=== PATIENT | male | born 1950 | race Caucasian/White ===

== ENCOUNTER 2016-04-29 13:23 | Inpatient (IN) | payer MEDICARE, MEDICAID ==
[~2016-04-29] VITALS: Ht 168.9 cm; Wt 59.9 kg
[~2016-04-29 13:23] MED LIST: ADVAIR 10028 PUFF/IN IN; ALBUTEROL2 PUFFS/17 IN; AMOXIL500 MG PO; ASPIR-LOW81 MG PO; ASPIRIN81 MG PO; BACLOFEN 10MG T10 MG PO; BENZONATATE100 M1 PO; BUPROPION HYDR150 M1 PO; CEFTIN500 MG PO; CHEWABLE ASPIRI81 MG PO; CLARITIN10 MG OR; COMBIVENT INH14.7 GM IN; CRESTOR10 MG PO; CRESTOR20 MG PO; DOXEPIN100 MG PO; DUONEB 3 MG/3 ML3 ML IH; FERROUS SULFAT325 M2 PO; GABAPENTIN 600600 MG PO; IRON TABLETS325 MG PO; Isosorbide Mono60 MG PO; LEVAQUIN 750 M750 MG PO; LEVAQUIN500 MG PO; LISINOPRIL/HCTZ1 TA3 PO; LISINOPRIL5 MG PO; LORTAB 500 MG-11 TAB PO; LOSARTAN POTASS25 MG PO; LOSARTAN POTASS50 MG PO; MECLICOT25 MG PO; MELOXICAM15 MG PO; METOCLOPRAMIDE10 MG PO; MIRALAX17 GM/DOSE PO; MUCINEX600 M1 PO; NEURONTIN 300M300 MG PO; NEURONTIN600 MG PO; NEXIUM40 MG PO; NITROGLYCERIN0.4 MG SL; NORCO 325 MG-101 TAB PO; OMEPRAZOLE40 MG PO; PHENERGAN25 M3 PO; PLAVIX75 MG PO; PREDNISONE 5MG.5 MG PO; PROMETHAZINE25 M1 PO; SINGULAIR10 MG PO; SYMBICORT1 AE1 IH; TESSALON PERLE100 MG PO; VITAMIN D1000 IU PO; XANAX1 MG PO; ZITHROMAX Z PA250 MG PO
[2016-04-29 13:25] VITALS: BP 103/57
[2016-04-29 13:51] LABS: LYMPH # 1.1 K/mm3 (0.7-4.5); LYMPH % 6.9 % (10-50)
[2016-04-29 13:52] LABS: HEMOGLOBIN 14.5 g/dL (14.1-18.0)
--- NOTE | 2016-04-29 13:57 | Emergency Room Report ---
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 N Clinical Suspician of Infection? N Mental Status: 1 - Regular (Normal Baseline) Sepsis Risk:Low Sepsis Risk Have you (or family members/close friends) recently traveled outside the [place]? N If Yes, where/when: Have you had exposure to infectious disease within the past month? N TB? Other? Specify: Comment The patient comes in by ambulance. He says that he has been shaking all over his body all day today and feels very chilled. He also has a sensation of tingling of his skin all over his body. Because of this he is afraid that he has had a heart attack or stroke. He has had a cough off and on for 3 months, productive of green sputum. He has some diarrhea but says he took some Imodium and that is better. States had chest pain this morning and took a nitroglycerin. ALLERGIES Coded Allergies: Sulfa (Sulfonamide Antibiotics) (Mild, 04/07/15) ciprofloxacin (From CIPRO) (Mild, 04/07/15) codeine (Mild, 04/07/15) morphine (Mild, 04/07/15) Home Medications Reported Medications BACLOFEN (Baclofen) 10 MG PO BID #60 HYDROCODONE/ACETAMINOPHEN ([place] 10-325 Tablet) 1 TAB PO QIDP PRN PAIN Clopidogrel Bisulfate (Plavix) 75 MG PO DAILY Aspirin (Aspir-Low) 81 MG PO QAM #2 Loratadine (Claritin 10MG Tab) 10 MG OR DAILY Polyethylene Glycol 3350 (Miralax) 17 GM PO DAILY CHOLECALCIFEROL (VITAMIN D3) (Vitamin D3) 1,000 IUNITS PO DAILY Albuterol/Ipratropiu (Duoneb) 3 ML IH QID Ferrous Sulfate (Feosol) 325 MG PO DAILY DOXEPIN HCL (Doxepin Hydrochloride) 50 MG PO QHS PROMETHAZINE HCL (Phenergan 25MG Tab (Geq)) 25 MG PO QIDP PRN N/V Mirtazapine 30 MG PO DAILY Benzonatate 200 MG PO TIDP PRN cough UMECLIDINIUM BROMIDE (Incruse Ellipta) 62.5 MCG IH DAILY LISINOPRIL/HYDROCHLOROTHIAZIDE (Lisinopril-Hctz 10-12.5 MG Tab) 1 TAB PO DAILY Device (Oxygen, Portable) 1 UNIT IH CONSTANT Device (Oxygen Concentrator (Portable)) 1 UNIT IH CONSTANT Alprazolam (Xanax) 1 MG PO TIDP Albuterol (Albuterol Inhaler 17GM) 2 PUFFS IN QIDP PRN SHORTNESS OF BREATH Metoclopramide Hcl (Metoclopramide) 10 MG PO ACHS NITROGLYCERIN (Nitrostat) 0.4 MG SL PRN Rosuvastatin Calcium (Crestor) 10 MG PO QHS Gabapentin (Gabapentin 600MG) 600 MG PO TID Montelukast Sodium (Singulair) 10 MG PO QHS BUDESONIDE/FORMOTEROL FUMARATE (Symbicort 160-4.5 Mcg Inhaler) 2 PUFFS IH BID Meclizine Hydrochloride (Meclicot) 12.5 MG PO TIDP PRN DIZZINESS Guaifenesin (Mucinex) 600 MG PO BID ISOSORBIDE MONONITRATE (Isosorbide Mononitrate ER) 60 MG PO DAILY Omeprazole (Omeprazole 40MG) 40 MG PO DAILY Prednisone (Prednisone 5MG) 5 MG PO DAILY History Medical History General CAD? Yes Angina: Yes [place]: Yes Hypertension? Yes Hyperlipidemia? Yes CHF? Yes DVT? No PE? No COPD? Yes Asthma? Yes Anemia? No GERD? No Gastric ulcers? No GI Bleed? No Hernia? No Thyroid Problems? No Hypothyroidism? No CVA? No Seizures? No Diabetes? No Insulin Dependent: No Insulin Pump: No Home FSBS? No Renal Insuffiency? No End Stage Renal Disease? No UTI? Yes Stones? No BPH? No GB Disease: Yes Nephritic Syndrome? No Asplenia? No Hepatitis? Yes Sickle Cell Disease? No Arthritis? No Migraines? No Cataracts? No Glaucoma? No MRSA? No HIV? No TB? No Anxiety? No Depression? No Cancer? Yes Site: BONE/BACK Immunization Hx DT/Tetanus 5-10 YRS Flu Refused Pneumonia Received In Past Surgical Hx Previous Surgery?Y STENTS IN HEART X 9 BACK SURGERY ANKLE SURGERY KNEE APPY LEFT HAND RODS IN BACK GALLBLADDER STENT RT LEG x2 Family History Family Hx Diabetes Yes CAD Yes Hypertension Yes Hyperlipidemia Yes Cancer Yes TB No Social History Smoking Hx Smoker: Current Every Day Smoker Tobacco: Yes Type Cigarettes Packs/day < 1 Pack Alcohol Alcohol: Yes Review of Systems All Other Systems Reviewed and Negative Constitutional chills Respiratory cough, denies shortness of breath Cardiovascular chest pain Gastrointestinal diarrhea, denies vomiting Psychiatric/Neurological denies headache, tingling, denies weakness Physical Exam Vital Signs Vital Signs Date Time Temp Pulse Resp B/P Pulse O2 O2 Flow FiO2 Ox Delivery Rate 04/29 1552 97.2 82 16 98/62 97 3 04/29 1512 82 16 98/62 97 3 04/29 1434 92 18 87/47 93 3 04/29 1357 97.2 97 16 102/43 93 3 04/29 1350 77 04/29 1325 97.2 89 16 103/57 77 General Appearance normal appearance, WD/WN Eye Exam - bilateral eye normal exam, bilateral eye PERRL, bilateral eye EOMI Ear, Nose, Throat hearing grossly normal, normal ENT inspection Neck normal inspection, non-tender, supple, full range of motion Respiratory Status Yes: trachea midline, chest symmetrical, non tender chest. No: respiratory distress. Lung Sounds bilateral: normal breath sounds, lungs clear. Cardiovascular normal exam, regular rate/rhythm, no peripheral edema, no gallop, no JVD, no murmur, no rub, normal peripheral pulses Peripheral Pulses Pulses normal Yes Gastrointestinal normal bowel sounds, normal exam, non tender, soft, no organomegaly Back normal inspection, no CVA tenderness, no vertebral tenderness Extremities non-tender, normal range of motion, normal inspection Neurologic alert, accountant budget II-XII nml as tested, normal exam, oriented x 3 Mental status normal mood/affect Skin intact, normal color, warm/dry Medical Decision Making LABS/Meds/Orders Pt receiving controlled substance in ED? No Results/Orders Laboratory Tests 04/29/16 1420: Lactic Acid 1.5 04/29/16 1405: Influenza Type A Ag NOT DETECTED, Influenza Type B Ag NOT DETECTED 04/29/16 1325: Troponin I 0.03 04/29/16 1325: Sodium 128 L, Potassium 3.9, Chloride 89 L, Carbon Dioxide 28, BUN 16, Creatinine 1.7 H, Estimated Creat Clear 35 L, Estimated GFR (MDRD) 40, Glucose 82, Calcium 9.7, Total Bilirubin 0.4, AST 63 H, ALT 72, Alkaline Phosphatase 103, Total Protein 7.9, Albumin 3.5, Globulin 4.4 H, Albumin/Globulin Ratio 0.8 L, Amylase 146 H, Lipase 323, WBC 15.5 H, RBC 4.58 L, Hgb 14.5, Hct 43.3, MCV 94.5, RDW 14.1, Plt Count 436 H, MPV 8.5, Gran % 88.7 H, Gran # 13.8 H, Total Counted 100, Lymphocytes % 6.9 L, Monocytes % 3.5, Eosinophils % 0.4, Basophils % 0.5, Neutrophils 85 H, Band Neutrophils 1, Lymphocytes (Manual) 7 L, Lymphocytes # 1.1, Monocytes (Manual) 7, Monocytes # 0.5, Eosinophils # 0.1, Basophils # 0.1, Differential Comment MODERATE INCREASED PLATELETS, Platelet Estimate CLUMPED, Tear Drop Cells 2+, [place] Cells 1+, PUBS MCHC 33.5, MCH 31.6 H Current Medication Orders Sig/[place] Start time Last Medication Dose Route Stop Time Status Admin Azithromycin 500 MG 1400 04/30 1400 AC Sodium Chloride 250 ML IV Ceftriaxone Sodium 1 GM 1300 04/30 1300 AC Sodium Chloride 50 ML IV Albuterol/Ipratropium 3 ML QIDRT 04/29 2000 AC 04/29 INH 2009 Influenza Virus 0.5 ML PRN PRN 04/29 1530 AC Vaccine Quadrival IM Nicotine 21 MG DAILYP PRN 04/29 1530 AC TD Sodium Chloride 1,000 ML .[id number] 04/29 1530 AC 04/29 IV 1809 Sodium Chloride 10 ML PRN PRN 04/29 1530 AC IV Sodium Chloride 1,000 ML .[id number] 04/29 1515 DC IV 04/29 1615 Azithromycin 0 .STK-MED ONE 04/29 1503 DC IV Sodium Chloride 250 ML .STK-MED ONE 04/29 1502 DC IV Azithromycin 500 MG ONCE ONE 04/29 1430 DC 04/29 Sodium Chloride 250 ML IV 04/29 1529 1505 Ceftriaxone Sodium 1 GM ONCE ONE 04/29 1430 DC 04/29 Sodium Chloride 50 ML IV 04/29 1459 1425 Ceftriaxone Sodium 0 .STK-MED ONE 04/29 1423 DC IV Sodium Chloride 50 ML .STK-MED ONE 04/29 1423 DC IV Sodium Chloride 10 ML PRN PRN 04/29 1345 AC IV 04/30 1334 Orders Procedure Date/time Status CBC WITH AUTO DIFF 04/30 0600 Active BASIC METABOLIC PROFILE 04/30 0600 Active [id number] FAT/LO CHO/MAISHA 04/29 D Active RT Sputum Induction for specim 04/29 154 Active RT Sputum Specimen, Collected 04/29 1542 Active RT Shift Assessment 04/29 1542 Active RT Pulse Oximetry, Provide 04/29 1542 Active RT O2 Installation/Change Set 04/29 154 Active RT O2 Therapy, Monitor/[place] 04/29 1542 Active RT Aerosol Treatment, Provide 04/29 1542 Active RT Aerosol Treatment, Provide 04/29 1542 Active Decision to admit 04/29 1507 Active DIARRHEA PANEL, PCR 04/29 1455 Active ELECTROCARDIOGRAM REQUEST 04/29 1404 Active CULTURE, BLOOD 04/29 1404 Active TROPONIN I 04/29 1404 Complete LACTIC ACID 04/29 1404 Complete INFLUENZA A&B ANTIGENS 04/29 1404 Complete OXYGEN PER NURSE 04/29 1341 Active IV SALINE LOCK 04/29 1334 Active LIPASE 04/29 1334 Complete CBC WITH AUTO DIFF 04/29 1334 Complete CHEM 12 PROFILE 04/29 1334 Complete AMYLASE 04/29 1334 Complete DIFFERENTIAL-WBC 04/29 1325 Complete ADMIT PATIENT 04/29 UNK Active 12 LEAD EKG-FLORES (INITIAL) 04/29 UNK Active PULSE OXIMETRY REQUEST 04/29 UNK Active OXYGEN REQUEST 04/29 UNK Active RT REQUEST DUONEB 04/29 UNK Active VITAL SIGNS 04/29 UNK Active POM NURSE MARIA ELENA HOSE ORDER 04/29 UNK Active IV SALINE LOCK 04/29 UNK Active RECORD I & O 04/29 UNK Active CODE STATUS 04/29 UNK Active PATIENT ACTIVITY ORDER 04/29 UNK Active CM/EKG CM/EKG Comments EKG interpreted by Viktor Sutherland MD: Rhythm: sinus Rate: 93 [place]: normal Ectopy: none Conduction: RIGHT bundle branch block ST Segment Changes: none T Wave Changes: none Q Waves: none No evidence of acute ischemia or injury XRAY/CT/US XRAY/CT/US XRAY chest Comment X-ray interpreted by Viktor Sutherland M.D.: Left-sided pneumonia. Cardiac size normal. Progress - 3:00 PM:I have discussed the case with Dr. Barrios for Dr. Mercedes who agrees to admit the patient to the hospital. We discussed the patient's clinical information, including history, exam, laboratory and radiology results and ED course. Per hospital procedure, I will write temporary bridge inpatient orders on the patient. Specific orders requested by the admitting physician: Antibiotics, IV fluids Departure Departure Disposition Still a Patient Clinical Impression Primary Impression: Community acquired pneumonia Secondary Impressions: Dehydration Condition STABLE Referrals Teddy Mercedes MD (Family) ED Critical Care Critical Care No at 2027
[2016-04-29 14:14] LABS: NEUTROPHILS 85 % (42-76)
--- NOTE | 2016-04-29 14:44 | RADIOLOGY REPORT PS360 ---
CHEST-PORTABLE HISTORY: Cough, chest pain COUGHING UP GREEN STUFF FOR A MONTH COMPARISON: 02/15/2016 FINDINGS: Normal heart size. Coronary artery calcifications and/or stent noted on the left. There are moderate emphysematous changes with scattered areas of fibrosis. Increased density is present in the left mid and upper lungs on consistent with left-sided pneumonia. No effusions. No acute bony anomalies. IMPRESSION: Left-sided pneumonia superimposed upon chronic emphysematous changes with pulmonary fibrosis
[2016-04-29 16:38] VITALS: BP 105/60
[2016-04-29 16:46] VITALS: BP 105/60
--- NOTE | 2016-04-29 16:47 | HISTORY AND PHYSICAL REPORT ---
History and Physical ([facility]CA) Date of admission: 04/29/16 Chief complaint: SOA History: History of Present Illness: Mr. Chan is a 66 yo white male with a hx of severe COPD, Hep C, Cirrhosis, HTN, HLP, CAD, tobacco abuse, alcohol abuse, and chronic pain who presented to the ER today by ambulance. He states that he has been shaking all over today and has felt very chilled. He also has a sensation of tingling of his skin all over his body. He has had a cough off and on for 3 months with productive green sputum. He has had some diarrhea but states he took some Imodium and that is better. He did have some CP this am and took a nitro. He was recently seen by Dr. Xiong on 04/24/16 and was started on amoxicillin and a medrol dose pack for his productive cough. He was was evaluated in the ER and found to have pneumonia. He was admitted and started on abx and neb treatments. Past Medical History: Medical History: CAD? Yes Angina: Yes [place]: Yes Hypertension? Yes Hyperlipidemia? Yes CHF? Yes DVT? No PE? No COPD? Yes Asthma? Yes Anemia? No GERD? No Gastric ulcers? No GI Bleed? No Hernia? No Thyroid Problems? No Hypothyroidism? No CVA? No Seizures? No Diabetes? No Insulin Dependent: No Insulin Pump: No Home FSBS? No Renal Insuffiency? No UTI? Yes Stones? No BPH? No GB Disease: Yes Nephritic Syndrome? No Asplenia? No Hepatitis? Yes Sickle Cell Disease? No Arthritis? No Migraines? No Cataracts? No Glaucoma? No MRSA? No HIV? No TB? No Anxiety? No Depression? No Cancer? Yes Site: BONE/BACK Additional hx: 1. Alcohol Abuse 2. Tobacco abuse 3. Cirrhosis 4. Hep C Surgical history: Previous Surgery?Y 1. STENTS IN HEART X 9 B 2. BACK SURGERY 3. ANKLE SURGERY 4. LEFT TOTAL KNEE 5. APPY 6. LEFT HAND 7. RODS IN BACK 8. GALLBLADDER 9. STENT RT LEG x2 10. CATARACT Medications: Reported Medications BACLOFEN (Baclofen) 10 MG PO BID #60 HYDROCODONE/ACETAMINOPHEN ([place] 10-325 Tablet) 1 TAB PO QIDP PRN PAIN Clopidogrel Bisulfate (Plavix) 75 MG PO DAILY Aspirin (Aspir-Low) 81 MG PO QAM #2 Loratadine (Claritin 10MG Tab) 10 MG OR DAILY Polyethylene Glycol 3350 (Miralax) 17 GM PO DAILY CHOLECALCIFEROL (VITAMIN D3) (Vitamin D3) 1,000 IUNITS PO DAILY Albuterol/Ipratropiu (Duoneb) 3 ML IH QID Ferrous Sulfate (Feosol) 325 MG PO DAILY DOXEPIN HCL (Doxepin Hydrochloride) 50 MG PO QHS PROMETHAZINE HCL (Phenergan 25MG Tab (Geq)) 25 MG PO QIDP PRN N/V Mirtazapine 30 MG PO DAILY Benzonatate 200 MG PO TIDP PRN cough UMECLIDINIUM BROMIDE (Incruse Ellipta) 62.5 MCG IH DAILY LISINOPRIL/HYDROCHLOROTHIAZIDE (Lisinopril-Hctz 10-12.5 MG Tab) 1 TAB PO DAILY Device (Oxygen, Portable) 1 UNIT IH CONSTANT Device (Oxygen Concentrator (Portable)) 1 UNIT IH CONSTANT Alprazolam (Xanax) 1 MG PO TIDP Albuterol (Albuterol Inhaler 17GM) 2 PUFFS IN QIDP PRN SHORTNESS OF BREATH Metoclopramide Hcl (Metoclopramide) 10 MG PO ACHS NITROGLYCERIN (Nitrostat) 0.4 MG SL PRN Rosuvastatin Calcium (Crestor) 10 MG PO QHS Gabapentin (Gabapentin 600MG) 600 MG PO TID Montelukast Sodium (Singulair) 10 MG PO QHS BUDESONIDE/FORMOTEROL FUMARATE (Symbicort 160-4.5 Mcg Inhaler) 2 PUFFS IH BID Meclizine Hydrochloride (Meclicot) 12.5 MG PO TIDP PRN DIZZINESS Guaifenesin (Mucinex) 600 MG PO BID ISOSORBIDE MONONITRATE (Isosorbide Mononitrate ER) 60 MG PO DAILY Omeprazole (Omeprazole 40MG) 40 MG PO DAILY Prednisone (Prednisone 5MG) 5 MG PO DAILY Allergies: Coded Allergies: Sulfa (Sulfonamide Antibiotics) (Mild, 04/07/15) ciprofloxacin (From CIPRO) (Mild, 04/07/15) codeine (Mild, 04/07/15) morphine (Mild, 04/07/15) Family History: Family history: Postive for: CAD, DM, HTN, cancer, hyperlipidemia. Social History: Smoking Hx Tobacco: Yes Smoker: Current Every Day Smoker Type: Cigarettes Packs/day: < 1 Pack Are you exposed to second hand No Alcohol: Alcohol: Yes Hx of Drug Use: Drug Use? No Review of Systems: Constitutional Positive for: chills, lethargy, malaise, weak. ENT Positive for: nasal congestion, sore throat. Cardiovascular Positive for: chest pain. No: edema, palpitations. Respiratory Positive for: dyspnea on exertion, shortness of air, productive cough (sputum), wheezing. GI Positive for: diarrhea. No: abdominal pain, hematemeis, hematochezia, nausea, vomitting. (male) No: frequency, hematuria. Neurological Positive for: dizziness, weakness. No: headache, syncope. Musculoskeletal Positive for: joint pain (all over), myalgias. Physical Exam: Vital signs: 1ST Vital Signs Result Date Time Pulse Ox 77 04/29 132 B/P 103/57 04/29 1324 Temp 97.2 04/29 1324 Pulse 89 04/29 132 Resp 16 04/29 132 O2 Flow Rate 3 04/29 1357 Exam: General appearance: alert, awake, no acute distress Eyes: anicteric, conjunctiva clear, EOM's w/normal ROM, PERRLA ENT: mucous membranes moist, nose normal, pharynx normal Neck: non-tender, no carotid bruit, full range of motion, supple Cardiovascular: regular rate & rhythm Respiratory: diminished breath sounds posteriorly, LLL with wheezing ABD: non-distended, normal bowel sounds, no rebound, soft, no tenderness, no guarding Extremities: no peripheral edema Musculoskeletal: equal muscle strength, no calf tenderness Skin: normal color Neuro: normal mood/affect, oriented, speech clear Lab data: Labs: Laboratory Tests 04/29/16 1420: Lactic Acid 1.5 04/29/16 1405: Influenza Type A Ag NOT DETECTED, Influenza Type B Ag NOT DETECTED 04/29/16 1325: Troponin I 0.03 04/29/16 1325: Sodium 128 L, Potassium 3.9, Chloride 89 L, Carbon Dioxide 28, BUN 16, Creatinine 1.7 H, Estimated Creat Clear 35 L, Estimated GFR (MDRD) 40, Glucose 82, Calcium 9.7, Total Bilirubin 0.4, AST 63 H, ALT 72, Alkaline Phosphatase 103, Total Protein 7.9, Albumin 3.5, Globulin 4.4 H, Albumin/Globulin Ratio 0.8 L, Amylase 146 H, Lipase 323, WBC 15.5 H, RBC 4.58 L, Hgb 14.5, Hct 43.3, MCV 94.5, RDW 14.1, Plt Count 436 H, MPV 8.5, Gran % 88.7 H, Gran # 13.8 H, Total Counted 100, Lymphocytes % 6.9 L, Monocytes % 3.5, Eosinophils % 0.4, Basophils % 0.5, Neutrophils 85 H, Band Neutrophils 1, Lymphocytes (Manual) 7 L, Lymphocytes # 1.1, Monocytes (Manual) 7, Monocytes # 0.5, Eosinophils # 0.1, Basophils # 0.1, Differential Comment MODERATE INCREASED PLATELETS, Platelet Estimate CLUMPED, Tear Drop Cells 2+, Jaqueline Cells 1+, PUBS MCHC 33.5, MCH 31.6 H Microbiology 04/29 1420 BLOOD: Anaerobic Blood Culture - RECD 04/29 1420 BLOOD: Aerobic Blood Culture - RECD 04/29 1420 BLOOD: Anaerobic Blood Culture - RECD 04/29 1420 BLOOD: Aerobic Blood Culture - RECD Radiology results: Results: CXR- Left-sided pneumonia superimposed upon chronic emphysematous changes with pulmonary fibrosis Diagnosis(es): 1. Pneumonia Status: Acute 2. Renal insufficiency Status: Acute 3. Hyponatremia Status: Acute 4. Chronic low back pain Status: Chronic 5. ASCVD (arteriosclerotic cardiovascular disease) Status: Chronic 6. Hypertension Status: Chronic 7. Tobacco user Status: Chronic 8. oxygen dependent COPD Status: Chronic 9. Depression with anxiety Status: Chronic Plan: Will start back on most of his home medications. Will continue abx, IVF's, and nebs. (Celina Santiago) Diagnosis(es): 1. Pneumonia Status: Acute 2. oxygen dependent COPD Status: Chronic 3. Renal insufficiency Status: Acute 4. Hyponatremia Status: Acute 5. Chronic low back pain Status: Chronic 6. ASCVD (arteriosclerotic cardiovascular disease) Status: Chronic 7. Hypertension Status: Chronic 8. Tobacco user Status: Chronic 9. Depression with anxiety Status: Chronic Plan: Saw patient yesterday afternoon, on day of admission, and agree with above note, but was unable to sign note at that time. (Sophie VIDES,Eric) at 3035
[2016-04-29] MEDS ORDERED: FEOSOL325 MG PO (16:55)
[2016-04-29] MEDS ORDERED: DOXEPIN HYDROCH PO (16:57)
[2016-04-29] MEDS ORDERED: INCRUSE EL62.5 MCG/A IH (17:01)
[2016-04-29] MEDS ORDERED: BENZONATATE200 MG PO (17:01)
[2016-04-29] MEDS ORDERED: MIRTAZAPINE30 M1 PO (17:01)
[2016-04-29] MEDS ORDERED: PHENERGAN25 M3 PO (17:01)
[2016-04-29] MEDS ORDERED: HYDROCHLOROTHIA1 TAB PO (17:02)
[2016-04-29] MEDS ORDERED: OXYGEN2 IH (17:02)
[2016-04-29] MEDS ORDERED: OXYGEN3 IH (17:02)
[2016-04-29 20:11] VITALS: BP 114/53
[2016-04-29 20:33] VITALS: BP 100/44; BP 114/53
[2016-04-29 23:48] VITALS: BP 100/44
[2016-04-30] VITALS (7 sets, daily range): BP systolic 102–122; BP diastolic 52–62
[2016-04-30 06:41] LABS: LYMPH # 0.9 K/mm3 (0.7-4.5); LYMPH % 5.8 % (10-50)
[2016-04-30 06:54] LABS: HEMOGLOBIN 10.8 g/dL (14.1-18.0)
--- NOTE | 2016-04-30 08:02 | ACUTE CARE PROGRESS NOTE (QUA) ---
Progress Notes Subjective Date 04/30/16 Time 0759 Note Pt states he is feeling better today. He is still wheezing and SOA. He did rest well. He denies any pain today. Objective Findings Last VS-Temp:97.78 B/P:104/57 Pulse:79 Resp:20 SaO2:93 OXYGEN Last weight lbs:126 oz:9 K.408 Method:Bed Scales Laboratory Tests 04/30/16 0610: Sodium 132 L, Potassium 4.5, Chloride 97 L, Carbon Dioxide 28, BUN 15, Creatinine 0.7 L, Estimated Creat Clear 83, Estimated GFR (MDRD) 112, Glucose 116 H, Calcium 8.7, WBC 15.1 H, RBC 3.39 L, Hgb 10.8 L, Hct 31.9 L, MCV 94.2, RDW 14.2, Plt Count 320, MPV 8.6, Gran % 89.4 H, Gran # 13.5 H, Lymphocytes % 5.8 L, Monocytes % 4.7, Eosinophils % 0.1, Basophils % 0.1, Lymphocytes # 0.9, Monocytes # 0.7, Eosinophils # 0.0, Basophils # 0.0, PUBS MCHC 33.7, MCH 31.7 H 04/29/16 1420: Lactic Acid 1.5 04/29/16 1405: Influenza Type A Ag NOT DETECTED, Influenza Type B Ag NOT DETECTED 04/29/16 1325: Troponin I 0.03 04/29/16 1325: Sodium 128 L, Potassium 3.9, Chloride 89 L, Carbon Dioxide 28, BUN 16, Creatinine 1.7 H, Estimated Creat Clear 35 L, Estimated GFR (MDRD) 40, Glucose 82, Calcium 9.7, Total Bilirubin 0.4, AST 63 H, ALT 72, Alkaline Phosphatase 103, Total Protein 7.9, Albumin 3.5, Globulin 4.4 H, Albumin/Globulin Ratio 0.8 L, Amylase 146 H, Lipase 323, WBC 15.5 H, RBC 4.58 L, Hgb 14.5, Hct 43.3, MCV 94.5, RDW 14.1, Plt Count 436 H, MPV 8.5, Gran % 88.7 H, Gran # 13.8 H, Total Counted 100, Lymphocytes % 6.9 L, Monocytes % 3.5, Eosinophils % 0.4, Basophils % 0.5, Neutrophils 85 H, Band Neutrophils 1, Lymphocytes (Manual) 7 L, Lymphocytes # 1.1, Monocytes (Manual) 7, Monocytes # 0.5, Eosinophils # 0.1, Basophils # 0.1, Differential Comment MODERATE INCREASED PLATELETS, Platelet Estimate CLUMPED, Tear Drop Cells 2+, Jaqueline Cells 1+, PUBS MCHC 33.5, MCH 31.6 H Microbiology 04/29 2009 SPUTUM: Sputum Culture - RES 04/29 2009 SPUTUM: Gram Stain - RES 04/29 142 BLOOD: Anaerobic Blood Culture - RECD 04/29 142 BLOOD: Aerobic Blood Culture - RECD 04/29 1420 BLOOD: Anaerobic Blood Culture - RECD 04/29 142 BLOOD: Aerobic Blood Culture - RECD Exam General appearance: alert, awake, no acute distress Cardiovascular: regular rate & rhythm Respiratory: wheezing and rhonchi bilaterally ABD: non-distended, normal bowel sounds, no rebound, soft, no tenderness, no guarding Extremities: no peripheral edema Assessment/Plan Problem List 1. Pneumonia Status: Acute 2. Renal insufficiency Status: Acute 3. Hyponatremia Status: Acute 4. Chronic low back pain Status: Chronic 5. ASCVD (arteriosclerotic cardiovascular disease) Status: Chronic 6. Hypertension Status: Chronic 7. Tobacco user Status: Chronic 8. oxygen dependent COPD Status: Chronic 9. Depression with anxiety Status: Chronic Plan: Pt improving. Will continue current treatment. This inpt stay is expected to cross 2 MNs from start of care Yes (Celina Santiago) Subjective Date 04/30/16 Time 0822 Assessment/Plan Problem List 1. Pneumonia Status: Acute 2. oxygen dependent COPD Status: Chronic 3. Renal insufficiency Status: Acute 4. Hyponatremia Status: Acute 5. Chronic low back pain Status: Chronic 6. ASCVD (arteriosclerotic cardiovascular disease) Status: Chronic 7. Hypertension Status: Chronic 8. Tobacco user Status: Chronic 9. Depression with anxiety Status: Chronic Plan: Pt seen and examined. Concur with above assessment and plan. (Teddy Mercedes MD) at 0801 at 0823
--- NOTE | 2016-04-30 08:23 | PHARMACY CLINIC NOTE ---
Patient Demographics Patient Demographics Admission date: 04/29/16 Date: 04/30/16 Time: 0823 Allergies Coded Allergies: Sulfa (Sulfonamide Antibiotics) (Mild, 04/07/15) ciprofloxacin (From CIPRO) (Mild, 04/07/15) codeine (Mild, 04/07/15) morphine (Mild, 04/07/15) HEIGHT- FT: 5 IN: 6.50 K.408 VTE General Information Labs: Laboratory Tests 04/30 04/29 0610 1325 Hematology Hgb (14.1 - 18.0 g/dL) 10.8 L 14.5 Hct (42.0 - 52.0 %) 31.9 L 43.3 Plt Count (142 - 424 K/mm3) 320 436 H Disclaimer The following section includes nursing documentation that has been pulled in for pharmacy review. Patient's VTE score: 3 Patient's VTE Risk: LOW RISK Clinical trial participant? No VTE prophylaxis [id number] VTE prophylaxis ordered? Yes Type of prophylaxis/treatment: MARIA ELENA at 0823
[2016-04-30 13:34] LABS: AEROMONAS NOT DETECTED (NOT DETECTE); ASTROVIRUS NOT DETECTED (NOT DETECTE); CYCLOSPORA CAYETANENSIS NOT DETECTED (NOT DETECTE); E COLI O157 NOT DETECTED (NOT DETECTE); ENTEROAGGREGATIVE E COLI NOT DETECTED (NOT DETECTE); ENTEROPATHOGENIC E COLI NOT DETECTED (NOT DETECTE); ENTEROTOXIGENIC E COLI NOT DETECTED (NOT DETECTE); NOROVIRUS NOT DETECTED (NOT DETECTE); SAPOVIRUS NOT DETECTED (NOT DETECTE); SHIGA-LIKE TOXIN PROD. E COLI NOT DETECTED (NOT DETECTE); SHIGELLA/ENTEROINVASIVE E COLI NOT DETECTED (NOT DETECTE); VIBRIO CHOLERAE NOT DETECTED (NOT DETECTE)
[2016-05-01] VITALS (7 sets, daily range): BP systolic 118–154; BP diastolic 51–80
[2016-05-01 06:28] LABS: HEMOGLOBIN 10.4 g/dL (14.1-18.0); LYMPH % 11.2 % (10-50)
--- NOTE | 2016-05-01 08:25 | ACUTE CARE PROGRESS NOTE (QUA) ---
Progress Notes Subjective Date 05/01/16 Time 0822 Note Patient is feeling better today. He states he has less shortness of air. Still wheezing. He is anxious to go home. He denies any pain. Objective Findings Last VS-Temp:98.6 B/P:149/61 Pulse:97 Resp:18 SaO2:90 OXYGEN Last weight lbs:126 oz:9 K.408 Method:Bed Scales Laboratory Tests 05/01/16 0605: Sodium 134 L, Potassium 3.9, Chloride 98, Carbon Dioxide 30, BUN 9, Creatinine 0.6 L, Estimated Creat Clear 97, Estimated GFR (MDRD) 134, Glucose 92, Calcium 9.0, WBC 8.6, RBC 3.34 L, Hgb 10.4 L, Hct 31.9 L, MCV 95.5, RDW 13.9, Plt Count 284, MPV 8.4, Gran % 82.9 H, Gran # 7.1, Lymphocytes % 11.2, Monocytes % 4.3, Eosinophils % 1.4, Basophils % 0.1, Lymphocytes # 1.0, Monocytes # 0.4, Eosinophils # 0.1, Basophils # 0.0, PUBS MCHC 32.6, MCH 31.1 04/30/16 1325: Stl Cyclospora species NOT DETECTED, Stool Rotavirus (PCR) NOT DETECTED, Stool Campylobacter PCR NOT DETECTED, Stool Giardia Lamblia PCR NOT DETECTED, Stl Norovirus GI/GII PCR NOT DETECTED, Adenovirus (PCR) NOT DETECTED, C. difficile Tox (PCR) NOT DETECTED, E. coli (PCR) NOT DETECTED, Yersinia (PCR) NOT DETECTED Exam General appearance: alert, awake, no acute distress Cardiovascular: regular rate & rhythm Respiratory: inspiratory and expiratory wheezing bilaterally, no rales ABD: non-distended, normal bowel sounds, no rebound, soft, no tenderness, no guarding Extremities: no peripheral edema Assessment/Plan Problem List 1. Pneumonia Status: Acute 2. oxygen dependent COPD Status: Chronic 3. Renal insufficiency Status: Acute 4. Hyponatremia Status: Acute 5. Chronic low back pain Status: Chronic 6. ASCVD (arteriosclerotic cardiovascular disease) Status: Chronic 7. Hypertension Status: Chronic 8. Tobacco user Status: Chronic 9. Depression with anxiety Status: Chronic Plan: Still awaiting sputum culture. White blood cell count has improved. Home soon. This inpt stay is expected to cross 2 MNs from start of care Yes (Celina Santiago) Subjective Date 05/01/16 Time 0829 Assessment/Plan Problem List 1. Pneumonia Status: Acute 2. oxygen dependent COPD Status: Chronic 3. Renal insufficiency Status: Acute 4. Hyponatremia Status: Acute 5. Chronic low back pain Status: Chronic 6. ASCVD (arteriosclerotic cardiovascular disease) Status: Chronic 7. Hypertension Status: Chronic 8. Tobacco user Status: Chronic 9. Depression with anxiety Status: Chronic Plan: Pt seen and examined. By my exam, he still has bilateral coarse rhonchi but much less wheezing. No resp distress. Will continue current antibiotics pending cultures and repeat CXR. (Teddy Mercedes MD) at 0824 at 0832
--- NOTE | 2016-05-01 09:49 | RADIOLOGY REPORT PS360 ---
CHEST(2 VIEWS-NOT PORTABLE) ORDERING PHYSICIAN : Teddy Mercedes MD PATIENT AGE: 66 years GENDER: Male INDICATION: f/u pneumonia TECHNIQUE: PA and lateral chest COMPARISON: 04/29/2016 CXR also February 15, 2016 CXR FINDINGS Diffuse interstitial infiltrate left lung most evident towards left base. The focal area of infiltrate left midlung has dissipated but now more diffuse infiltrate left lung Findings at the left lung appear to progressed since 04/29/2016. Lateral film demonstrates left lower lobe atelectasis and infiltrate, with possible lingular infiltrate There is infiltrate and atelectasis also at the medial right base most likely involving the right lower lobe but also questionably at right middle lobe.. There is hyperexpansion right lung. Heart is normal in size. Coronary artery stent noted. Adry and mediastinal structures stable. Underlying COPD. IMPRESSION: 1. Diffuse interstitial infiltrate left lung. The more focal infiltrate at the left mid lung and perihilar region has dissipated, however there is now a a more diffuse interstitial infiltrate pattern throughout left lung... On today's study Slightly more pronounced focal infiltrate left infrahilar region. 2. Also atelectasis & airspace disease at the medial right base a likely involving the RLL and questionably RML lobe.
[2016-05-02] VITALS (20 sets, daily range): BP systolic 123–180; BP diastolic 53–84
[2016-05-02 03:53] LABS: ARTERIAL ABE 3.8 MMOL/L (-2.4-+2.3)
--- NOTE | 2016-05-02 08:25 | ACUTE CARE PROGRESS NOTE (QUA) ---
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 Patient became sedated/lethargic over night. These episodes would all improve with Narcan treatment. Patient also had a fever several times. He was transferred to step down care for closer monitoring. Nursing staff reports patient had a female visitor last night prior to his change in status. The possibility was raised that he may taken medication/narcotics that were not prescribed to him. Will discuss with Dr. Mercedes. Assessment/Plan Problem List 1. Pneumonia Status: Acute 2. oxygen dependent COPD Status: Chronic 3. Renal insufficiency Status: Acute 4. Hyponatremia Status: Acute 5. Chronic low back pain Status: Chronic 6. ASCVD (arteriosclerotic cardiovascular disease) Status: Chronic 7. Hypertension Status: Chronic 8. Tobacco user Status: Chronic 9. Depression with anxiety Status: Chronic This inpt stay is expected to cross 2 MNs from start of care Yes at 0824
--- NOTE | 2016-05-02 08:25 | ACUTE CARE PROGRESS NOTE (QUA) ---
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 Patient became sedated/lethargic over night. These episodes would all improve with Narcan treatment. Patient also had a fever several times. He was transferred to step down care for closer monitoring. Nursing staff reports patient had a female visitor last night prior to his change in status. The possibility was raised that he may taken medication/narcotics that were not prescribed to him. Will discuss with Dr. Mercedes. Assessment/Plan Problem List 1. Pneumonia Status: Acute 2. oxygen dependent COPD Status: Chronic 3. Renal insufficiency Status: Acute 4. Hyponatremia Status: Acute 5. Chronic low back pain Status: Chronic 6. ASCVD (arteriosclerotic cardiovascular disease) Status: Chronic 7. Hypertension Status: Chronic 8. Tobacco user Status: Chronic 9. Depression with anxiety Status: Chronic This inpt stay is expected to cross 2 MNs from start of care Yes at 0824
[2016-05-02 09:17] LABS: LYMPH % 11.1 % (10-50)
--- NOTE | 2016-05-02 09:40 | ACUTE CARE PROGRESS NOTE (QUA) ---
Progress Notes Subjective Date 05/02/16 Time 0939 Note Events of last evening reviewed with Dr. Barrios and his nurse. He remains sedated this morning but is arousable. No respiratory distress. Objective Findings Laboratory Tests 05/02/16 0753: POC Glucose 96 05/02/16 0328: ABG pH 7.35, ABG pCO2 (Temp Corrct 55.0 H, ABG pO2 (Temp Correct 84.0, ABG HCO3 29.5 H, ABG Total CO2 31.0 H, ABG O2 Sat (Calculated) 95, ABG Base Excess 3.8 H Last VS-Temp:98.9 B/P:136/72 Pulse:99 Resp:20 SaO2:97 OXYGEN Last weight lbs:129 oz:0 K.513 Method:Bed Scales Exam General appearance: Sedated but arouses and attempts to answer questions but quickly drifts back to sleep. No resp distress. Cardiovascular: regular rate & rhythm Respiratory: bilateral coarse rhinchi and wheezes. Diminished BS on left ABD: non-distended, soft, no tenderness, no guarding Extremities: no peripheral edema Skin: dry, normal color, warm Neuro: somnolent Reviewed: medications, vital signs, lab results, nursing notes Assessment/Plan Problem List 1. Altered mental status 2. Pneumonia Status: Acute 3. oxygen dependent COPD Status: Chronic 4. Renal insufficiency Status: Acute 5. Hyponatremia Status: Acute 6. Chronic low back pain Status: Chronic 7. ASCVD (arteriosclerotic cardiovascular disease) Status: Chronic 8. Hypertension Status: Chronic 9. Tobacco user Status: Chronic 10. Depression with anxiety Status: Chronic Plan: The etiology of his AMS is not clear but with the finding of empty [place] bottle in his personal lock box and his response to Narcan raises the question of drug overdose. Acetaminphen level is pending and will check UDS. He is presently in no distress. His O2 sats and ABG are satisfactory. Repeat CXR is pending. Awaiting final sputum C&S (appears to be growing Strep pneumo) Will check UA due to his fever spike last night and will check blood culture. This inpt stay is expected to cross 2 MNs from start of care Yes at 0808
[2016-05-02 09:43] LABS: HEMOGLOBIN 11.7 g/dL (14.1-18.0)
--- NOTE | 2016-05-02 11:21 | RADIOLOGY REPORT PS360 ---
CHEST-PORTABLE COMPARISON: PA and lateral chest 05/01/2016 HISTORY: Follow-up pneumonia TECHNIQUE: AP upright chest FINDINGS: Diffuse interstitial pneumonic infiltrates are again seen in the left perihilar region and left lower lobe. There now is minimal involvement in the right lower lobe and possibly anterior segment right upper lobe. The infiltrates appear somewhat more ill-defined than yesterday's film and this may reflect better hydration of the patient. Cardiac size is again normal. IMPRESSION: Slight interval progression of the interstitial pneumonic infiltrates to the right lung overall infiltrates may appear slightly more pronounced due to better hydration of the patient. Suggest continued close follow-up.
[2016-05-02 12:16] LABS: URINE BILIRUBIN - DIPSTICK NEGATIVE (NEG); URINE BLOOD TRACE-LYSED (NEG)
[2016-05-02 12:30] LABS: AMPHETAMINES/METAMPHETAMINES NEGATIVE ng/mL (<1000)
[2016-05-03] VITALS (16 sets, daily range): BP systolic 96–158; BP diastolic 52–77
[2016-05-03 06:44] LABS: HEMOGLOBIN 12.3 g/dL (14.1-18.0); LYMPH # 1.3 K/mm3 (0.7-4.5); LYMPH % 13.3 % (10-50)
--- NOTE | 2016-05-03 08:13 | ACUTE CARE PROGRESS NOTE (QUA) ---
Progress Notes Subjective Date 05/03/16 Time 0809 Note Through the day yesterday and through the night he has gradually become more alert. He is sitting up eating breakfast this AM and asking to go home. He is oriented x3 this morning. He is eager to go home but not clinically stable at this time. When asked about the events of Wednesday evening, he states "I think somebody slipped me a pill on Wednesday". I asked where this happened and he states it was "down on [address]". He does no remember he was in the hospital on Wednesday. He insists that he has not taken anything else while in the hospital. Objective Exam General appearance: much more alert and oriented. No resp distress. Cardiovascular: regular rate & rhythm Respiratory: bilateral coarse rhonchi with few wheezes. Decreased BS in left base ABD: non-distended, normal bowel sounds, soft, no tenderness Assessment/Plan Problem List 1. Streptococcal pneumonia 2. Altered mental status Assessment/Plan improved 3. oxygen dependent COPD Status: Chronic 4. Renal insufficiency Status: Acute 5. Hyponatremia Status: Acute 6. Chronic low back pain Status: Chronic 7. ASCVD (arteriosclerotic cardiovascular disease) Status: Chronic 8. Hypertension Status: Chronic 9. Tobacco user Status: Chronic 10. Depression with anxiety Status: Chronic Plan: Continue IV Rocephin. Remove Polo. Will get PT eval tomorrow. This inpt stay is expected to cross 2 MNs from start of care Yes at 0842
[2016-05-04] VITALS (7 sets, daily range): BP systolic 123–146; BP diastolic 60–78
--- NOTE | 2016-05-04 08:11 | ACUTE CARE PROGRESS NOTE (QUA) ---
Progress Notes Subjective Date 05/04/16 Time 0801 Note No complaints this AM. States he slept "like a baby". Still with productive cough. Objective Findings Last VS-Temp:97.7 B/P:138/74 Pulse:79 Resp:12 SaO2:94 OXYGEN Last weight lbs:126 oz:4 K.266 Method:Bed Scales Exam General appearance: alert, no acute distress, sitting on side of bed eating breakfast Cardiovascular: regular rate & rhythm Respiratory: bilateral coarse rhonchi. Minimal wheezes. Extremities: no peripheral edema Neuro: Oriented x 3 Assessment/Plan Problem List 1. Streptococcal pneumonia 2. Altered mental status 3. oxygen dependent COPD Status: Chronic 4. Renal insufficiency Status: Acute 5. Hyponatremia Status: Acute 6. Chronic low back pain Status: Chronic 7. ASCVD (arteriosclerotic cardiovascular disease) Status: Chronic 8. Hypertension Status: Chronic 9. Tobacco user Status: Chronic 10. Depression with anxiety Status: Chronic Patient condition Improving Plan: SPutum culture is growing Strep pneumo sensitive to ROcephin. WIll continue Rocephin and stop Zithromax. WIll get PT eval to assess strength and balance. Repeat CXR today. This inpt stay is expected to cross 2 MNs from start of care Yes at 0810
--- NOTE | 2016-05-04 09:22 | RADIOLOGY REPORT PS360 ---
CHEST(2 VIEWS-NOT PORTABLE) ORDERING PHYSICIAN : Teddy Mercedes MD PATIENT AGE: 66 years GENDER: Male INDICATION: f/u pneumoniaShort of breath chest pain follow-up pneumonia TECHNIQUE: . PA and Lateral chest COMPARISON: 05/01/2016 2 view chest::;... 05/02/2016 portable chest FINDINGS Left lung has shown slight overall improvement since 05/01/2016. The diffuse interstitial infiltrate superimposed upon the diffuse chronic changes has regressed throughout improvement most notable at the left lower lobe retrocardiac region. Improved expansion as well. Left CP angle appear sharp with less likely fluid here. Again underlying COPD with underlying bleb formation most evident towards the left apex left upper lung. Stable area of focal scarring at the periphery of the left upper lobe is been present since 2014 Right chest: there does seem to be a very subtle interstitial infiltrate at the right lower lobe associated with some slight volume loss and slight inferior positioning of major fissure as well. Also a patchy area of density at the right upper lobe is mainly due to scarring but is slightly more evident today and I only question minimal associated infiltrate this is likely located posteriorly at RUL. The heart is normal in size. Coronary stent evident. Adry and mediastinal structures unchanged. Chest wall T-spine intact. IMPRESSION:... 1. Left chest: Improvement The diffuse interstitial infiltrate left chest has shown overall improvement since previous recent studies. 2. Right chest.: Suspect very Subtle diffuse interstitial infiltrate RLL with slight volume loss. Also note scarring RUL is slightly more evident.- Most likely projectional but difficult to exclude minimal associated infiltrate developing here as well. 3. Underlying advanced COPD,/ emphysematous changes
[2016-05-05 00:41] VITALS: BP 118/64
[2016-05-05 04:14] VITALS: BP 126/64
--- NOTE | 2016-05-05 07:45 | ACUTE CARE PROGRESS NOTE (QUA) ---
Progress Notes Subjective Date 05/05/16 Time 0739 Note Patient states he feels great and wants to go home. Denies SOB and ANY pain; productive cough is less; eating better; no stools but is passing flatus; + nausea requiring phenergan last PM Objective Findings Vital Signs Date Time Temp Pulse Resp B/P Pulse O2 O2 Flow FiO2 Ox Delivery Rate 05/05 0644 3 05/05 0632 18 05/05 0554 3 05/05 0537 3 05/05 0537 94 OXYGEN 3 05/05 0510 3 05/05 0503 3 05/05 0414 98.6 76 18 126/64 96 OXYGEN 3 05/05 0400 3 05/05 0300 3 05/05 0200 3 05/05 0157 18 05/05 0100 3 05/05 0041 97.6 72 18 118/64 93 05/05 0005 3 05/04 2300 3 05/04 2200 3 05/04 1924 3 05/04 1904 12 05/04 1800 3 05/04 1710 3 05/04 1600 98.1 73 12 130/68 96 OXYGEN 3 05/04 1538 3 05/04 1537 3 05/04 1400 3 05/04 1300 3 05/04 1200 3 05/04 1200 98.6 71 14 124/63 97 OXYGEN 3 05/04 1053 12 05/04 1044 3 05/04 1000 3 05/04 0910 3 05/04 0820 97.7 79 12 138/74 94 3 05/04 0800 3 05/04 0800 98.1 86 16 146/78 97 OXYGEN 3 05/04 0754 3 Current Medications Acetaminophen/Hydrocodone Bitart 0 .STK-MED ONE PO (DCr) Acetaminophen/Hydrocodone Bitart 0 .STK-MED ONE PO (DCr) Alprazolam 0 .STK-MED ONE .ROUTE (DC) Doxepin HCl 50 MG QHS PO Montelukast Sodium 10 MG QHS PO Pantoprazole Sodium 40 MG QHS PO Pravastatin Sodium 20 MG QHS PO Alprazolam 0 .STK-MED ONE .ROUTE (DC) Acetaminophen/Hydrocodone Bitart 0 .STK-MED ONE PO (DCr) Polyethylene Glycol 17 GM DAILYP PRN PO Ceftriaxone Sodium 1 GM 1300 IV Sodium Chloride 50 ML Metoclopramide HCl 10 MG ACHS PO Acetaminophen/Hydrocodone Bitart 0 .STK-MED ONE PO (DCr) Albuterol/Ipratropium 3 ML QIDRT INH Aspirin 81 MG QAM PO Baclofen 10 MG BID PO Clopidogrel Bisulfate 75 MG DAILY PO Ferrous Sulfate 325 MG DAILY PO Gabapentin 600 MG TID PO Guaifenesin 600 MG BID PO Isosorbide Mononitrate 60 MG DAILY PO Loratadine 10 MG DAILY PO Prednisone 5 MG DAILY PO Acetaminophen 650 MG Q4HP PRN PO Acetaminophen 650 MG Q6HP PRN MS Acetaminophen/Hydrocodone Bitart 1 TAB QIDP PRN PO Alprazolam 1 MG TIDP PRN PO Influenza Virus Vaccine Quadrival 0.5 ML PRN PRN IM Loperamide HCl 2 MG Q6HP PRN PO Naloxone HCl 2 MG [id number] PRN IV Nicotine 21 MG DAILYP PRN TD Sodium Chloride 10 ML PRN PRN IV Acetaminophen 650 MG Q6HP PRN MS (DC) Naloxone HCl 2 MG [id number] PRN IV (DC) Acetaminophen 650 MG Q4HP PRN PO (DC) Loperamide HCl 2 MG Q6HP PRN PO (DC) Azithromycin 500 MG 1400 IV (DC) Sodium Chloride 250 ML Ceftriaxone Sodium 1 GM 1300 IV (DC) Sodium Chloride 50 ML Aspirin 81 MG QAM PO (DC) Ferrous Sulfate 325 MG DAILY PO (DC) Isosorbide Mononitrate 60 MG DAILY PO (DC) Loratadine 10 MG DAILY PO (DC) Prednisone 5 MG DAILY PO (DC) Baclofen 10 MG BID PO (DC) Doxepin HCl 50 MG QHS PO (DC) Gabapentin 600 MG TID PO (DC) Guaifenesin 600 MG BID PO (DC) Metoclopramide HCl 10 MG ACHS PO (DC) Montelukast Sodium 10 MG QHS PO (DC) Pantoprazole Sodium 40 MG QHS PO (DC) Pravastatin Sodium 20 MG QHS PO (DC) Albuterol/Ipratropium 3 ML QIDRT INH (DC) Acetaminophen/Hydrocodone Bitart 1 TAB QIDP PRN PO (DC) Alprazolam 1 MG TIDP PRN PO (DC) Clopidogrel Bisulfate 75 MG DAILY PO (DC) Influenza Virus Vaccine Quadrival 0.5 ML PRN PRN IM (DC) Nicotine 21 MG DAILYP PRN TD (DC) Sodium Chloride 10 ML PRN PRN IV (DC) 05/04 1500 05/04 2300 05/05 0700 Intake Total 779 10 Output Total Balance 779 10 Intake, IV 779 10 Output, Stool Patient 126 lb 132 lb Weight Last VS-Temp:98.6 B/P:126/64 Pulse:76 Resp:18 SaO2:94 OXYGEN Last weight lbs:132 oz:2 K.931 Method:Bed Scales CXR 05/04/16 IMPRESSION:... 1. Left chest: Improvement The diffuse interstitial infiltrate left chest has shown overall improvement since previous recent studies. 2. Right chest.: Suspect very Subtle diffuse interstitial infiltrate RLL with slight volume loss. Also note scarring RUL is slightly more evident.- Most likely projectional but difficult to exclude minimal associated infiltrate developing here as well. 3. Underlying advanced COPD,/ emphysematous changes Exam General appearance: alert, active, awake, no acute distress, sitting on bedside eating breakfast Cardiovascular: regular rate & rhythm Respiratory: bilateral rhonchi with soft expiratory wheeze throughout; better air exchange Assessment/Plan Problem List 1. Streptococcal pneumonia 2. Altered mental status 3. oxygen dependent COPD Status: Chronic 4. Renal insufficiency Status: Acute 5. Hyponatremia Status: Acute 6. Chronic low back pain Status: Chronic 7. ASCVD (arteriosclerotic cardiovascular disease) Status: Chronic 8. Hypertension Status: Chronic 9. Tobacco user Status: Chronic 10. Depression with anxiety Status: Chronic Patient condition Improved Plan: continue current care, possibly home today This inpt stay is expected to cross 2 MNs from start of care Yes (Madelyn Oquendo APRN) Assessment/Plan Problem List 1. Streptococcal pneumonia 2. Altered mental status 3. oxygen dependent COPD Status: Chronic 4. Renal insufficiency Status: Acute 5. Hyponatremia Status: Acute 6. Chronic low back pain Status: Chronic 7. ASCVD (arteriosclerotic cardiovascular disease) Status: Chronic 8. Hypertension Status: Chronic 9. Tobacco user Status: Chronic 10. Depression with anxiety Status: Chronic Plan: Pt seen and examined. He looks and feels much better. Concur with above assessment and plan for discharge. Will f/u in office in 3 days. (Teddy Mercedes MD) at 0745 at 0839
[2016-05-05] MEDS ORDERED: CEFUROXIME AXE500 MG PO (08:43)
[2016-05-05 08:45] VITALS: BP 126/65
[2016-05-05 09:31] VITALS: BP 126/65
--- NOTE | 2016-05-07 15:07 | DISCHARGE SUMMARY STANDARD ---
Discharge Summary ([facility]) Date of admission: 04/29/16 Date of discharge: 05/05/16 Problem List: 1. Streptococcal pneumonia 2. Altered mental status 3. oxygen dependent COPD 4. Renal insufficiency 5. Hyponatremia 6. Chronic low back pain 7. ASCVD (arteriosclerotic cardiovascular disease) 8. Hypertension 9. Tobacco user 10. Depression with anxiety History of present illness: Mr. Chan is a 66 yo white male with a hx of severe COPD, Hep C, Cirrhosis, HTN, HLP, CAD, tobacco abuse, alcohol abuse, and chronic pain who presented to the ER by ambulance. He stated that he had been shaking all over and had felt very chilled. He also had a sensation of tingling of his skin all over his body. He had had a cough off and on for 3 months with productive green sputum. He had had some diarrhea but stated he took some Imodium and that was better. He did have some CP the am of admission and took a nitro. He was recently seen by Dr. Xiong on 04/24/16 and was started on amoxicillin and a medrol dose pack for his productive cough. He was evaluated in the ER and found to have pneumonia. He was admitted and started on abx and neb treatments. Exam on admission: General appearance: alert, awake, no acute distress Eyes: anicteric, conjunctiva clear, EOM's w/normal ROM, PERRLA ENT: mucous membranes moist, nose normal, pharynx normal Neck: non-tender, no carotid bruit, full range of motion, supple Cardiovascular: regular rate & rhythm Respiratory: diminished breath sounds posteriorly, LLL with wheezing ABD: non-distended, normal bowel sounds, no rebound, soft, no tenderness, no guarding Extremities: no peripheral edema Musculoskeletal: equal muscle strength, no calf tenderness Skin: normal color Neuro: normal mood/affect, oriented, speech clear Hospital Course: He was started back on most of his home medications along with IV fluids, abx, and neb treatments. His white blood cell count did improve with antibiotics. He had a repeat chest x-ray on 05/01/16 showing diffuse interstitial infiltrate of the LEFT lung. Dr. Barrios was on-call on the evening of 05/02/16 and the patient became sedated and lethargic overnight. These episodes improved with Narcan treatment. He was transferred to the stepdown unit for further monitoring. The nursing staff reported he had a female visitor that night prior to his change in status. The possibility was raised that he may have taken medication or narcotics that were not prescribed to him. By the morning of 05/02/16, he remained sedated but was arousable. There was no respiratory distress. Etiology of his altered mental status was not clear but the nursing staff did find an empty Fenton bottle in his personal lockbox and his response to Narcan raised the question of a drug overdose. His oxygen sats and ABGs were satisfactory. A repeat chest x-ray was ordered. It showed a slight interval progression of the interstitial pneumonic infiltrates to the RIGHT lung. Overall the infiltrates appeared slightly more pronounced probably due to better hydration of the patient. His sputum grew strep pneumo that was sensitive to Rocephin. His Rocephin was continued and his Zithromax was discontinued. He gradually became more alert. He was sitting up eating breakfast and asking to go home. When asked about the events of Wednesday evening, he stated "I think somebody slipped me a pill on Wednesday". When asked where this happened and he stated it was "down on [address] He did not remember he was in the hospital on Wednesday. He insisted that he had not taken anything else while in the hospital. By 05/05/16, the patient was feeling much better and anxious to go home. His chest x-ray showed improvement in his pneumonia. He was stable to be discharged home on Ceftin and would need to follow-up in the [facility] Dr. Mercedes. Discharge medications: Continue taking these medications: Alprazolam (Xanax) 1 MG TABLET 1 MILLIGRAM ORAL THREE TIMES A DAY NEEDED Albuterol (Albuterol Inhaler 17GM) 90 MCG/PUFF INH 2 PUFFS IN VITRO FOUR TIMES A DAY NEEDED as needed for SHORTNESS OF BREATH Metoclopramide Hcl (Metoclopramide) 10 MG TAB 10 MILLIGRAM ORAL BEFORE MEALS AND AT BEDTIME NITROGLYCERIN (Nitrostat) 0.4 MG TAB.SUBL 0.4 MILLIGRAM SUBLINGUAL As Needed ISOSORBIDE MONONITRATE (Isosorbide Mononitrate ER) 60 MG TAB.ER.24H 60 MILLIGRAM ORAL DAILY Rosuvastatin Calcium (Crestor) 10 MG TABLET 10 MILLIGRAM ORAL AT BEDTIME NIGHTLY Omeprazole (Omeprazole 40MG) 40 MG CAPSULE. 40 MILLIGRAM ORAL DAILY Prednisone (Prednisone 5MG) 5 MG TABLET 5 MILLIGRAM ORAL DAILY BACLOFEN (Baclofen) 10 MG TABLET 10 MILLIGRAM ORAL TWICE A DAY Qty = 60 Gabapentin (Gabapentin 600MG) 600 MG TABLET 600 MILLIGRAM ORAL THREE TIMES A DAY Montelukast Sodium (Singulair) 10 MG TABLET 10 MILLIGRAM ORAL AT BEDTIME NIGHTLY BUDESONIDE/FORMOTEROL FUMARATE (Symbicort 160-4.5 Mcg Inhaler) 10.2 GM HFA.AER.AD 2 PUFFS INHALATION TWICE A DAY Meclizine Hydrochloride (Meclicot) 25 MG TAB 12.5 MILLIGRAM ORAL THREE TIMES A DAY NEEDED as needed for DIZZINESS Guaifenesin (Mucinex) [address] MILLIGRAM ORAL TWICE A DAY HYDROCODONE/ACETAMINOPHEN (Fenton 10-325 Tablet) 1 EACH TABLET 1 TABLET ORAL FOUR TIMES A DAY NEEDED as needed for PAIN Clopidogrel Bisulfate (Plavix) 75 MG TAB 75 MILLIGRAM ORAL DAILY Aspirin (Aspir-Low) 81 MG TABLET. 81 MILLIGRAM ORAL EVERY MORNING Qty = 2 Loratadine (Claritin 10MG Tab) 10 MG TABLET 10 MILLIGRAM BY MOUTH DAILY Polyethylene Glycol 3350 (Miralax) 119 GM POWDER 17 GRAM ORAL DAILY CHOLECALCIFEROL (VITAMIN D3) (Vitamin D3) 1,000 UNIT TABLET 1,000 INT. UNITS ORAL DAILY Instructions: 2 TABLETS DAILY Albuterol/Ipratropiu (Duoneb) 3 ML SURENDRA 3 MILLILITER INHALATION FOUR TIMES A DAY Ferrous Sulfate (Feosol) 325 MG TABLET 325 MILLIGRAM ORAL DAILY DOXEPIN HCL (Doxepin Hydrochloride) 50 MG CAPSULE 50 MILLIGRAM ORAL AT BEDTIME NIGHTLY PROMETHAZINE HCL (Phenergan 25MG Tab (Geq)) 25 MG TABLET 25 MILLIGRAM ORAL FOUR TIMES A DAY NEEDED as needed for N/V Mirtazapine (Mirtazapine) 30 MG TAB.RAPDIS 30 MILLIGRAM ORAL DAILY Benzonatate (Benzonatate) 200 MG CAPSULE 200 MILLIGRAM ORAL THREE TIMES A DAY NEEDED as needed for COUGH UMECLIDINIUM BROMIDE (Incruse Ellipta) 62.5 MCG BLST.W.DEV 62.5 MICROGRAM INHALATION DAILY LISINOPRIL/HYDROCHLOROTHIAZIDE (Lisinopril-Hctz 10-12.5 MG Tab) 1 EACH TABLET 1 TABLET ORAL DAILY Start taking the following new medications: Cefuroxime Axetil (Cefuroxime) 500 MG TABLET 500 MILLIGRAM ORAL TWICE A DAY Qty = 14 No Refills Disposition: F/u with: Teddy Mercedes MD Follow up: 3 DAYS Activity: Cont Current activity Diet: Cardiac Diet Discharge to: HOME Agency needed? N ([facility]) Problem List: 1. Streptococcal pneumonia 2. Altered mental status 3. oxygen dependent COPD 4. Renal insufficiency 5. Hyponatremia 6. Chronic low back pain 7. ASCVD (arteriosclerotic cardiovascular disease) 8. Hypertension 9. Tobacco user 10. Depression with anxiety Disposition: Concur with above (Teddy Mercedes MD) at [id number]
== END 2016-05-05 09:36 | disposition home or self-care (01) | DRG 195 ==
LOC: ER 13:23 → 2ND 15:16 → ICU 15:52 → 2ND 15:52 → ICU 05-02 06:08
PROVIDERS: Emergency Medicine; Family Medicine
DX: J13 Pneumonia due to Streptococcus pneumoniae (principal); Z99.81 Dependence on supplemental oxygen; K70.30 Alcoholic cirrhosis of liver without ascites; Z72.0 Tobacco use; J44.9 Chronic obstructive pulmonary disease, unspecified; Z95.5 Presence of coronary angioplasty implant and graft; Z95.828 Presence of other vascular implants and grafts; B19.20 Unspecified viral hepatitis C without hepatic coma; I25.10 Atherosclerotic heart disease of native coronary artery without angina pectoris
CPT/HCPCS: J0456; J2310